=== PATIENT | female | born 1960 | race Caucasian/White ===

== ENCOUNTER 2017-01-16 11:11 | Outpatient (CLI) | payer OTHER ==
--- NOTE | 2017-01-16 21:50 | RAD ---
LEFT SHOULDER THREE VIEWS 01/16/17 No fracture, dislocation, or AC joint widening was seen. While there are no substantial periarticula r calcifications, on at least one view there is a subtle bony or calcific density just above the gre ater tubercle of the humerus. This could potentially be in a tendon. IMPRESSION: 1. No acute findings. 2. Possible calcification in a tendon inserting on the greater tubercle. POS: HOME
== END 2017-01-16 11:12 | disposition home or self-care (01) ==
LOC: BURLAB 11:11
PROVIDERS: ATTEND Family Medicine
DX: M25.512 Pain in left shoulder (principal)